=== PATIENT | female | born 1960 ===

== ENCOUNTER 2018-02-13 09:13 | Observation (INO) | payer OTHER ==
--- NOTE | 2018-02-13 10:01 | C.PDOC ---
History Of Present Illness 58 y/o female with history of HTN and high cholesterol presents to ED with c/o left sided chest "pressure" pain since earlier today associated with sob. Patient reports no history of cardiac problems and states she took Aspirin today. Patient denies fever, chills, leg swelling, nausea, vomiting or any other complaints at this time. Time Seen by Provider: 02/13/18 09:27 Chief Complaint (Nursing): Chest Pain History Per: Patient History/Exam Limitations: no limitations Onset/Duration Of Symptoms: Hrs Current Symptoms Are (Timing): Still Present Quality: Tightness Past Medical History Reviewed: Historical Data, Nursing Documentation, Vital Signs Vital Signs: Last Vital Signs Temp Pulse Resp BP Pulse Ox 100 02/13/18 10:06 - Medical History PMH: HTN, Hyperlipidemia Surgical History: No Surg Hx Family History: States: No Known Family Hx - Social History Hx Alcohol Use: No Hx Substance Use: No Review Of Systems Except As Marked, All Systems Reviewed And Found Negative. Cardiovascular: Positive for: Chest Pain Respiratory: Positive for: Shortness of Breath Physical Exam - Physical Exam Appears: Non-toxic, No Acute Distress Skin: Warm, Dry, No Rash Head: Atraumatic, Normacephalic Eye(s): bilateral: Normal Inspection Oral Mucosa: Moist Chest: Symmetrical Cardiovascular: Rhythm Regular Respiratory: Normal Breath Sounds, No Rales, No Rhonchi, No Wheezing Gastrointestinal/Abdominal: Soft, No Tenderness, No Guarding, No Rebound Extremity: No Pedal Edema, Capillary Refill (<2 seconds) Neurological/Psych: Oriented x3, Normal Speech, Normal Cognition ED Course And Treatment - Laboratory Results Result Diagrams: 02/13/18 09:52 02/13/18 09:52 ECG: Interpreted By Me, Viewed By Me ECG Rhythm: Sinus Rhythm Interpretation Of ECG: NSR, Poor R wave progression Rate From EC (BPM) O2 Sat by Pulse Oximetry: 100 (RA) Medical Decision Making Medical Decision Making: Assessment: Chest pain Discussed with Dr. López and will admit to tele observation cardiology consult Dr. Carlos Disposition Discussed With : Nataliia López Doctor Will See Patient In The: Hospital Counseled Patient/Family Regarding: Studies Performed, Diagnosis - Disposition Disposition: HOSPITALIZED Disposition Time: 10:31 Condition: FAIR Forms: [facility] (Bermudian) - Clinical Impression Clinical Impression: Chest pain - Scribe Statement The provider has reviewed the documentation as recorded by the Roloibcordell Lucio All medical record entries made by the Roloibcordell were at my direction and personally dictated by me. I have reviewed the chart and agree that the record accurately reflects my personal performance of the history, physical exam, medical decision making, and the department course for this patient. I have also personally directed, reviewed, and agree with the discharge instructions and disposition.
[2018-02-13 10:03] LABS: BASO # 0.1 K/uL (0.0-0.2); BASO % 0.8 % (0.0-2.0); EOS # 0.1 K/uL (0.0-0.7); EOS % 1.8 % (0.0-4.0); HEMOGLOBIN 13.7 g/dL (11.0-16.0); LYMPH # 1.3 K/uL (1.0-4.3); LYMPH % 18.8 % (20.0-40.0); MEAN CELL VOLUME 90.3 fL (81.0-99.0); MEAN CORPUSCULAR HEMOGLOBIN 30.1 pg (27.0-31.0); MEAN CORPUSCULAR HGB CONC 33.3 g/dL (33.0-37.0); MEAN PLATELET VOLUME 10.7 fL (7.2-11.7); MONO # 0.6 K/uL (0.0-0.8); MONO % 8.6 % (0.0-10.0); NRBC % 0.1 % (0.0-2.0); RBC 4.56 Mil/uL (3.80-5.20); WHITE BLOOD COUNT 7.1 K/uL (4.8-10.8)
[2018-02-13 10:11] LABS: ALB/GLOB RATIO 1.8 (1.0-2.1); ALBUMIN 4.7 g/dL (3.5-5.0); ALT/SGPT 38 U/L (9-52); AST/SGOT 25 U/L (14-36); BLOOD UREA NITROGEN 11 mg/dL (7-17); CALCIUM 9.2 mg/dl (8.6-10.4); GFR NON-AFRICAN AMERICAN > 60
[2018-02-13 10:23] LABS: B-TYPE NATRIURETIC PEPTIDE 87.6 pg/mL (0-900)
--- NOTE | 2018-02-13 11:01 | RAD ---
Date of service: 02/13/2018 PROCEDURE: CHEST RADIOGRAPH, 1 VIEW HISTORY: SOB COMPARISON: None available. FINDINGS: LUNGS: The lungs are well inflated and clear. PLEURA: No pneumothorax or pleural fluid seen. CARDIOVASCULAR: Normal. OSSEOUS STRUCTURES: No significant abnormalities. VISUALIZED UPPER ABDOMEN: Normal. OTHER FINDINGS: None. IMPRESSION: No active pulmonary disease.
--- NOTE | 2018-02-13 13:17 | CP.PCM.CON ---
<Daya Burt - Last Filed: 02/13/18 17:36> History of Present Illness - History of Present Illness History of Present Illness: Cardiology Consult Note- Dr. Carlos's service Reason for consult: chest pain HPI: 58 year old female with past medical history significant for HTN and Hypercholesterolemia presents with complaints of chest pain which started around 5am this morning. Patient states that this is the first time this has ever occurred. She states that she experienced a tightness in her chest. She denies radiation of pain anywhere. She states that she is able to walk about without feeling fatigued. Patient does not note any changes with respirations or position in bed. Per ED note, patient took an aspirin. She admits to palpitations, headache and back pain. She states that the back pain and headache are separate and distinct from the chest tightness. She denies shortness of breath, nausea, vomiting or recent travel at this time. PMHx- as stated above PSHx- C/S x1 FamHx- Mother diagnosed with breast cancer at approx 80 years of age. Denies any other known cardiac disease in the family Medications- Norvasc 5 mg PO daily, Atorvastatin 20 mg PO HS and another medication Social- Denies tobacco, alcohol or illicit drug use. Patient works packing items Allergies- NKDA PMD- [place] [facility] on [address] Review of Systems - Review of Systems Systems not reviewed;Unavailable: Language Barrier - Constitutional Constitutional: absent: Weakness - EENT Eyes: absent: Change in Vision Ears: absent: Decreased Hearing, Ear Discharge - Cardiovascular Cardiovascular: Chest Pain. absent: Dyspnea - Respiratory Respiratory: absent: Cough, Dyspnea - Gastrointestinal Gastrointestinal: absent: Constipation, Diarrhea, Nausea, Vomiting - Musculoskeletal Musculoskeletal: Back Pain, Neck Pain - Integumentary Integumentary: absent: Change in Hair, Dry Skin - Neurological Neurological: absent: Abnormal Hearing, Abnormal Movements, Confusion - Psychiatric Psychiatric: absent: Anxiety Past Patient History - Past Social History Smoking Status: Never Smoked Alcohol: None Drugs: Denies Home Situation {Lives}: With Family - CARDIAC Hx Hypertension: Yes - PSYCHIATRIC Hx Substance Use: No - SURGICAL HISTORY Hx Surgeries: Yes Meds Allergies/Adverse Reactions: Allergies Allergy/AdvReac Type Severity Reaction Status Date / Time No Known Allergies Allergy Unverified 02/13/18 09:19 - Medications Medications: Current Medications Amlodipine Besylate (Norvasc) 5 mg PO DAILY [facility] Aspirin (Ecotrin) 81 mg PO DAILY [facility] Enoxaparin Sodium (Lovenox) 30 mg SC DAILY [facility] Famotidine (Pepcid) 20 mg PO DAILY [facility] Home Med (Azilsartan Medoxomil [Edarbi]) 40 mg PO DAILY [facility] Pneumococcal Polyvalent Vaccine (Pneumovax 23 Vaccine) 0.5 ml IM .ONCE ONE Stop: 02/14/18 10:01 Rosuvastatin Calcium (Crestor) 10 mg PO [facility] Physical Exam - Constitutional Appears: Non-toxic, No Acute Distress - Head Exam Head Exam: ATRAUMATIC, NORMAL INSPECTION, NORMOCEPHALIC - Eye Exam Eye Exam: EOMI, Normal appearance, PERRL Pupil Exam: NORMAL ACCOMODATION - ENT Exam ENT Exam: Mucous Membranes Moist - Neck Exam Neck exam: Positive for: Full Rom - Respiratory Exam Respiratory Exam: NORMAL BREATHING PATTERN - Cardiovascular Exam Cardiovascular Exam: +S1, +S2. absent: Tachycardia, Irregular Rhythm, JVD - GI/Abdominal Exam GI & Abdominal Exam: Normal Bowel Sounds, Soft. absent: Tenderness - Extremities Exam Extremities exam: Positive for: full ROM, normal capillary refill, pedal edema, pedal pulses present. Negative for: tenderness - Back Exam Back exam: FULL ROM - Neurological Exam Neurological exam: Alert, Oriented x3 - Psychiatric Exam Psychiatric exam: Normal Affect, Normal Mood - Skin Skin Exam: Dry, Intact, Warm Results - Vital Signs Recent Vital Signs: Last Vital Signs Temp 97.7 F 02/13/18 11:28 Pulse 62 02/13/18 12:18 Resp 18 02/13/18 11:28 BP 134/75 02/13/18 11:28 Pulse Ox 98 02/13/18 11:28 - Labs Result Diagrams: 02/13/18 09:52 02/13/18 09:52 Labs: Laboratory Results - last 24 hr 02/13/18 02/13/18 09:52 09:52 WBC 7.1 RBC 4.56 Hgb 13.7 Hct 41.2 MCV 90.3 MCH 30.1 MCHC 33.3 RDW 14.0 Plt Count 181 MPV 10.7 Neut % (Auto) 70.0 Lymph % (Auto) 18.8 L Toombs % (Auto) 8.6 Eos % (Auto) 1.8 Baso % (Auto) 0.8 Neut # (Auto) 5.0 Lymph # (Auto) 1.3 Toombs # (Auto) 0.6 Eos # (Auto) 0.1 Baso # (Auto) 0.1 Sodium 142 Potassium 3.9 Chloride 103 Carbon Dioxide 23 Anion Gap 20 BUN 11 Creatinine 0.6 L Est GFR ( Amer) > 60 Est GFR (Non-Af Amer) > 60 Random Glucose 96 Calcium 9.2 Total Bilirubin 0.6 AST 25 ALT 38 Alkaline Phosphatase 55 Troponin I < 0.0120 NT-Pro-B Natriuret Pep 87.6 Total Protein 7.3 Albumin 4.7 Globulin 2.6 Albumin/Globulin Ratio 1.8 Assessment & Plan (1) Chest pain Assessment and Plan: F/U EKG x3. Initial EKG no signs of ST segment elevations or depressions. F/U echo Troponin negative x1 Continue ASA 81 mg F/U AM labs: Lipid Panel, HgbA1c and thyroid studies Will monitor Status: Acute (2) HTN (hypertension) Assessment and Plan: Norvasc 5 mg PO daily On Ed[place] outpatient. Continue Normotensive Status: Chronic (3) Hypercholesteremia Assessment and Plan: F/U lipid panel Crestor 10 mg PO HS Status: Chronic (4) Prophylactic measure Assessment and Plan: Lovenox 30 SC daily Pepcid 20 mg PO daily Status: Acute <Aristeo Carlos - Last Filed: 02/14/18 06:44> Meds - Medications Medications: Current Medications Acetaminophen (Tylenol 325mg Tab) 650 mg PO Q6 PRN PRN Reason: Pain, moderate (4-7) Last Admin: 02/14/18 02:36 Dose: 650 mg Amlodipine Besylate (Norvasc) 5 mg PO DAILY [facility] Aspirin (Ecotrin) 81 mg PO DAILY [facility] Enoxaparin Sodium (Lovenox) 30 mg SC DAILY [facility] Famotidine (Pepcid) 20 mg PO DAILY [facility] Home Med (Patient's Own Medication) 1 tab PO DAILY [facility] Pneumococcal Polyvalent Vaccine (Pneumovax 23 Vaccine) 0.5 ml IM .ONCE ONE Stop: 02/14/18 10:01 Rosuvastatin Calcium (Crestor) 10 mg PO HS [facility] Last Admin: 02/13/18 21:12 Dose: 10 mg Results - Vital Signs Recent Vital Signs: Last Vital Signs Temp 98.1 F 02/14/18 04:10 Pulse 56 L 02/14/18 04:10 Resp 18 02/14/18 04:10 BP 112/70 02/14/18 04:10 Pulse Ox 97 02/14/18 04:10 - Labs Result Diagrams: 02/13/18 09:52 02/13/18 09:52 Labs: Laboratory Results - last 24 hr 02/13/18 02/13/18 02/13/18 09:52 09:52 17:07 WBC 7.1 RBC 4.56 Hgb 13.7 Hct 41.2 MCV 90.3 MCH 30.1 MCHC 33.3 RDW 14.0 Plt Count 181 MPV 10.7 Neut % (Auto) 70.0 Lymph % (Auto) 18.8 L Toombs % (Auto) 8.6 Eos % (Auto) 1.8 Baso % (Auto) 0.8 Neut # (Auto) 5.0 Lymph # (Auto) 1.3 Toombs # (Auto) 0.6 Eos # (Auto) 0.1 Baso # (Auto) 0.1 Sodium 142 Potassium 3.9 Chloride 103 Carbon Dioxide 23 Anion Gap 20 BUN 11 Creatinine 0.6 L Est GFR ( Amer) > 60 Est GFR (Non-Af Amer) > 60 Random Glucose 96 Calcium 9.2 Total Bilirubin 0.6 AST 25 ALT 38 Alkaline Phosphatase 55 Total Creatine Kinase 111 CK-MB (Mass) 0.87 Troponin I < 0.0120 < 0.0120 NT-Pro-B Natriuret Pep 87.6 Total Protein 7.3 Albumin 4.7 Globulin 2.6 Albumin/Globulin Ratio 1.8 02/13/18 21:53 WBC RBC Hgb Hct MCV MCH MCHC RDW Plt Count MPV Neut % (Auto) Lymph % (Auto) Toombs % (Auto) Eos % (Auto) Baso % (Auto) Neut # (Auto) Lymph # (Auto) Toombs # (Auto) Eos # (Auto) Baso # (Auto) Sodium Potassium Chloride Carbon Dioxide Anion Gap BUN Creatinine Est GFR ( Amer) Est GFR (Non-Af Amer) Random Glucose Calcium Total Bilirubin AST ALT Alkaline Phosphatase Total Creatine Kinase 99 CK-MB (Mass) 0.70 Troponin I < 0.0120 NT-Pro-B Natriuret Pep Total Protein Albumin Globulin Albumin/Globulin Ratio Assessment & Plan - Assessment and Plan (Free Text) Assessment: Patient seen and evaluated personally by me Plan of care d/w the medical examiner and as documented Will consider stress test if Trops are negative Check ECHO
[2018-02-13 17:51] LABS: CK-MB 0.87 ng/mL (0.0-3.38)
[2018-02-14 07:15] LABS: BASO # 0.1 K/uL (0.0-0.2); BASO % 1.1 % (0.0-2.0); EOS # 0.2 K/uL (0.0-0.7); EOS % 2.4 % (0.0-4.0); HEMOGLOBIN 13.4 g/dL (11.0-16.0); LYMPH # 1.3 K/uL (1.0-4.3); LYMPH % 20.9 % (20.0-40.0); MEAN CELL VOLUME 90.3 fL (81.0-99.0); MEAN CORPUSCULAR HEMOGLOBIN 30.2 pg (27.0-31.0); MEAN CORPUSCULAR HGB CONC 33.5 g/dL (33.0-37.0); MEAN PLATELET VOLUME 10.9 fL (7.2-11.7); MONO # 0.6 K/uL (0.0-0.8); MONO % 9.2 % (0.0-10.0); NEUT # 4.3 K/uL (1.8-7.0); NEUT % 66.4 % (50.0-75.0); RBC 4.44 Mil/uL (3.80-5.20); WHITE BLOOD COUNT 6.5 K/uL (4.8-10.8)
[2018-02-14 07:22] LABS: LDL CHOLESTEROL 40 mg/dL (0-129)
[2018-02-14 07:31] LABS: ALB/GLOB RATIO 1.6 (1.0-2.1); ALBUMIN 3.8 g/dL (3.5-5.0); ALT/SGPT 30 U/L (9-52); AST/SGOT 13 U/L (14-36); BLOOD UREA NITROGEN 8 mg/dL (7-17); CALCIUM 8.8 mg/dl (8.6-10.4); GFR NON-AFRICAN AMERICAN > 60; HDL CHOLESTEROL 39 mg/dL (30-70)
--- NOTE | 2018-02-14 09:09 | HP ---
date 02/13/18 Copied To: Nataliia López MD Attending MD: Nataliia López MD CHIEF COMPLAINT: Chest pain. HISTORY OF PRESENT ILLNESS: Ms. Karen Kate is a 58-year-old female with history of hypertension and hypercholesteremia, came to the emergency room, complaining of left-sided chest pain like pressure, which is earlier today, associated with shortness of breath. The patient reports no history of cardiac problem. She states that she took aspirin today. The patient denies fever, chills, swelling of the leg, nausea, vomiting, or diarrhea. No headache. No dizziness. Pain is like tightness. PAST MEDICAL HISTORY: Hypertension and hypercholesteremia. FAMILY HISTORY: Father and mother, noncontributory. HABITS: No smoking. No drug. No ethanol. ALLERGIES: THE PATIENT IS NOT ALLERGIC WITH ANY MEDICATIONS. REVIEW OF SYSTEMS: The patient was seen and examined at the bedside in her room, still complaining about chest pressure and sometime shortness of breath. No nausea or vomiting. Do not look like toxic or acute distress. No rash. The patient is atraumatic. PHYSICAL EXAMINATION: VITALS: Temperature 97.7, pulse 67, blood pressure 120/80 , and respiratory rate 20. HEENT: Head is normocephalic and atraumatic. Eyes, PERRLA. Extraocular muscles are intact. Conjunctivae clear. Nose is patent. Mucous membrane moist. NECK: Supple. No carotid bruit. No JVD or thyromegaly. CHEST: Bilaterally symmetrical. HEART: S1 and S2 positive. LUNGS: Clear to auscultation. ABDOMEN: Soft. Bowel sounds. No organomegaly. EXTREMITIES: No edema. No cyanosis. NEUROLOGICAL: The patient is awake and alert. Moving all 4 extremities. No focal deficits. LABORATORY DATA: White blood cells 7.1, hemoglobin 13.7, hematocrit 41.2, and platelets 181. Sodium 142, potassium 3.9, BUN 11, creatinine 0.6, and glucose 96. AST is 25 and ALT is 38. Troponin less than 0.0120 x3. ASSESSMENT AND PLAN: Ms. Karen Kate is a 58-year-old lady with history of hypertension, hypercholesteremia, came with chest pain. Cardiac enzymes x3 done, is negative. Followup EKG x3. Initial EKG, no signs of ST-segment elevation or depression. Followup echo. Continue aspirin. Followup lipid profile, hemoglobin A1c, and thyroid level. The patient is getting Norvasc 5 mg for high blood pressure, on [place] outpatient, continue that. Hypercholesteremia, I order the patient lipid profile. Continue Crestor 10 mg. Gastrointestinal and deep venous thrombosis prophylaxis. Given the patient Lovenox and Pepcid. Cardiology consult called. Chest x-ray reviewed by me. Repeat laboratories. We will follow up. Nataliia López MD MTDJaylyn
[2018-02-14] MEDS: EDARBI 40 MG PO SCH (09:25)
[2018-02-14] MEDS: Enoxaparin 30 mg Syringe SC SCH (09:25)
[2018-02-14] MEDS ORDERED: Pneumococcal 23-Valent Vaccine IM ONE (10:00)
--- NOTE | 2018-02-14 11:19 | CT ---
Date of service: 02/14/2018 PROCEDURE: CT Cervical Spine without contrast HISTORY: c/o numbnes to right side of neck ,right arm disco COMPARISON: None available. TECHNIQUE: Axial computed tomography images were obtained of the cervical spine without the use of intravenous contrast. Coronal and sagittal reformatted images were created and reviewed. Radiation dose: Total exam DLP = 442.6 mGy-cm. This CT exam was performed using one or more of the following dose reduction techniques: Automated exposure control, adjustment of the mA and/or kV according to patient size, and/or use of iterative reconstruction technique. FINDINGS: VERTEBRAE: No fracture. Normal alignment. No destructive bony lesion. DISCS/SPINAL CANAL/NEURAL FORAMINA: No significant central canal or neural foraminal stenosis. Discs heights are grossly preserved. PARASPINAL SOFT TISSUES: Unremarkable. OTHER FINDINGS: None. IMPRESSION: Unremarkable CT of the cervical spine.
--- NOTE | 2018-02-14 19:27 | CP.PCM.PN ---
<Mason Sullivan E - Last Filed: 02/14/18 19:24> Subjective - Date & Time of Evaluation Date of Evaluation: 02/14/18 Time of Evaluation: 10:00 - Subjective Subjective: Cardiology progress note ( Dr. Carlos's service) Patient was seen and examined at bedside. Patient states that she is doing well with no new complaints. Patient is still with intermittent chest pain and musculoskeletal back pain but denies palpitations, SOB, dizziness. Objective - Vital Signs/Intake and Output Vital Signs (last 24 hours): Temp Pulse Resp BP Pulse Ox 97.3 F L 60 20 113/69 97 02/14/18 15:00 02/14/18 15:00 02/14/18 15:00 02/14/18 15:00 02/14/18 15:00 Intake and Output: 02/14/18 02/15/18 18:59 06:59 Intake Total 480 Balance 480 - Medications Medications: Current Medications Acetaminophen (Tylenol 325mg Tab) 650 mg PO Q6 PRN PRN Reason: Pain, moderate (4-7) Last Admin: 02/14/18 02:36 Dose: 650 mg Amlodipine Besylate (Norvasc) 5 mg PO DAILY [facility] Last Admin: 02/14/18 09:24 Dose: 5 mg Aspirin (Ecotrin) 81 mg PO DAILY [facility] Last Admin: 02/14/18 09:24 Dose: 81 mg Enoxaparin Sodium (Lovenox) 30 mg SC DAILY [facility] Last Admin: 02/14/18 09:25 Dose: 30 mg Famotidine (Pepcid) 20 mg PO DAILY [facility] Last Admin: 02/14/18 09:24 Dose: 20 mg Home Med (Patient's Own Medication) 1 tab PO DAILY [facility] Last Admin: 02/14/18 09:25 Dose: 1 tab Rosuvastatin Calcium (Crestor) 10 mg PO HS [facility] Last Admin: 02/13/18 21:12 Dose: 10 mg - Labs Labs: 02/14/18 06:48 02/14/18 06:48 - Constitutional Appears: Well, No Acute Distress - Head Exam Head Exam: ATRAUMATIC, NORMAL INSPECTION - Eye Exam Eye Exam: EOMI, Normal appearance - ENT Exam ENT Exam: Mucous Membranes Moist - Respiratory Exam Respiratory Exam: Clear to Ausculation Bilateral, NORMAL BREATHING PATTERN. absent: Prolonged Expiratory Phase, Rhonchi, Wheezes - Cardiovascular Exam Cardiovascular Exam: REGULAR RHYTHM, +S1, +S2 - GI/Abdominal Exam GI & Abdominal Exam: Soft, Normal Bowel Sounds. absent: Firm, Guarding, Rigid - Extremities Exam Extremities Exam: Normal Inspection. absent: Calf Tenderness, Pedal Edema - Neurological Exam Neurological Exam: Alert, Awake, Oriented x3 Assessment and Plan (1) Chest pain Assessment & Plan: CARMELLA negative X3 without EKG changes HgbA1C: 5.8 Lipid panel: - TGL: 81, Chol: 110, LDL: 40 and HDL: 39 -TSH and Free T4: 1.68 and 0.84, wnl ASA 81mg PO daily Crestor 10mg PO HS Plans for possible stress test Status: Acute (2) HTN (hypertension) Assessment & Plan: Controlled Norvasc 5 mg PO daily Status: Chronic (3) Hypercholesteremia Assessment & Plan: Lipid panel: - TGL: 81, Chol: 110, LDL: 40 and HDL: 39 Crestor 10 mg PO HS Status: Chronic (4) Prophylactic measure Assessment & Plan: DVT: Lovenox 30 SC daily GI: Pepcid 20 mg PO daily All plans and management discussed with Dr. Carlos Status: Acute <Aristeo Carlos - Last Filed: 02/14/18 22:03> Objective - Vital Signs/Intake and Output Vital Signs (last 24 hours): Temp Pulse Resp BP Pulse Ox 97.3 F L 60 20 113/69 97 02/14/18 15:00 02/14/18 16:00 02/14/18 15:00 02/14/18 15:00 02/14/18 15:00 Intake and Output: 02/14/18 02/15/18 18:59 06:59 Intake Total 480 Balance 480 - Medications Medications: Current Medications Acetaminophen (Tylenol 325mg Tab) 650 mg PO Q6 PRN PRN Reason: Pain, moderate (4-7) Last Admin: 02/14/18 02:36 Dose: 650 mg Amlodipine Besylate (Norvasc) 5 mg PO DAILY [facility] Last Admin: 02/14/18 09:24 Dose: 5 mg Aspirin (Ecotrin) 81 mg PO DAILY [facility] Last Admin: 02/14/18 09:24 Dose: 81 mg Enoxaparin Sodium (Lovenox) 30 mg SC DAILY [facility] Last Admin: 08/30/18 09:25 Dose: 30 mg Famotidine (Pepcid) 20 mg PO DAILY [facility] Last Admin: 02/14/18 09:24 Dose: 20 mg Home Med (Patient's Own Medication) 1 tab PO DAILY [facility] Last Admin: 02/14/18 09:25 Dose: 1 tab Rosuvastatin Calcium (Crestor) 10 mg PO [facility] Last Admin: 02/13/18 21:12 Dose: 10 mg - Labs Labs: 02/14/18 06:48 02/14/18 06:48 Assessment and Plan - Assessment and Plan (Free Text) Assessment: Patient seen and evaluated personally by vt Plan of care d/w the electromedical equipment technician as documented
--- NOTE | 2018-02-14 20:06 | CARD ---
APPROVED REPORT Date of service: 02/13/2018 EKG Measurement Heart [id number] <Conclusion> Sinus bradycardia Otherwise normal ECG
--- NOTE | 2018-02-14 20:08 | CARD ---
APPROVED REPORT Date of service: 02/13/2018 EKG Measurement Heart [id number] <Conclusion> Sinus bradycardia Otherwise normal ECG
--- NOTE | 2018-02-14 20:23 | CARD ---
APPROVED REPORT Date of service: 02/13/2018 EKG Measurement Heart [id number] <Conclusion> Normal sinus rhythm Septal infarct, age undetermined Abnormal ECG
[2018-02-15] MEDS: Naproxen 550 mg Tab PO SCH ×2 (00:02→09:09)
--- NOTE | 2018-02-15 04:09 | PN ---
Copied To: Nataliia López MD Attending MD: Nataliia López MD DATE: 02/14/2018 SUBJECTIVE: The patient was seen and examined at the bedside, looking comfortable. Still complaining about neck pain and shoulder pain. Chest pain is better. No fever. No chills. No headache. No dizziness. The pain looks like musculoskeletal and shortness of breath. PHYSICAL EXAMINATION: VITAL SIGNS: Temperature 97.3, pulse 60, respiratory rate 20, blood pressure 113/69, pulse oximetry 97. HEENT: Normocephalic and atraumatic. Eyes PERRLA. Extraocular muscles intact. Conjunctivae are clear. Nose is patent. Mucous membranes are moist. NECK: Supple. No carotid bruits. No JVD or thyromegaly. CHEST: Bilaterally symmetrical. HEART: S1 and S2 positive. LUNGS: Clear to auscultation. ABDOMEN: Soft. Bowel sounds present. No organomegaly. EXTREMITIES: No edema. No cyanosis. NEUROLOGIC: The patient is awake and alert. Moving all four extremities. No focal deficits. MEDICATIONS: Tylenol, Norvasc, Ecotrin, Lovenox, Pepcid, Crestor. LABORATORY DATA: White blood cells 6.5, hemoglobin 13.4, hematocrit 40.2, and platelets 170,000. Sodium 141, potassium 3.9, BUN 8, creatinine 0.6, and glucose 101. ASSESSMENT AND PLAN: The patient is a 58-year-old lady, came with chest pain, rule out myocardial infarction negative x3 without EKG changes, hemoglobin A1c is 5.8. The patient is prediabetic. Cholesterol profile appreciated. with in normal limit. The patient is getting aspirin, Crestor. May be the patient need to go for stress test tomorrow as per Cardiology. Hypertension, getting controlled with Norvasc 5 mg. Hypercholesterolemia, getting Crestor. Getting gastrointestinal and deep venous thrombosis prophylaxis. Neck pain, looks like musculoskeletal. We will give some naproxen and muscle relaxant. Discussion done with the patient's daughter at length of time. Cervical spine CT reviewed by me. Echocardiographic results are pending. We will follow up. Nataliia López MD JOHN
[2018-02-15 08:27] VITALS: BP 119/70; RESP 18; TEMP 98.1; O2SAT 98
[2018-02-15 08:44] VITALS: PULSE 71
[2018-02-15] MEDS: Enoxaparin 30 mg Syringe SC SCH (09:08)
[2018-02-15] MEDS: EDARBI 40 MG PO SCH (09:09)
--- NOTE | 2018-02-15 12:16 | CP.PCM.PN ---
Subjective - Date & Time of Evaluation Date of Evaluation: 02/15/18 Time of Evaluation: 12:15 - Subjective Subjective: PT SEEN BY AND CLEARED FOR D/C HOME TODAY PER DR. PRESLEY. PER SAKINA PT HAS BEEN CLEARED BY [employer]. RX FOR NAPROXEN GIVEN PER DR. PRESLEY'S REQUEST. NO FURTHER ORDERS. -FOLLOW UP WITH DR. PRESLEY IN THE OFFICE WITHIN 5-7 DAYS---CALL THE OFFICE FOR AN APPOINTMENT. -FOLLOW UP WITH DR. GARCIA OR YOU COLLECTOR IN THE OFFICE WITHIN 10-14 DAYS--- CALL THE OFFICE FOR AN APPOINTMENT. -FOLLOW UP WITH DR. VELEZ (NEUROLOGIST) IN THE OFFICE WITHIN 10-14 DAYS---CALL THE OFFICE FOR AN APPOINTMENT. -CONTINUE HOME MEDICATIONS USUAL. -NEW PRESCRIPTION GIVEN TO YOU PER DR. PRESLEY: 1) NAPROXEN---TAKE WITH FOOD EXACTLY PRESCRIBED. -FOR FURTHER QUESTIONS, CONTACT DR. PRESLEY. Objective - Vital Signs/Intake and Output Vital Signs (last 24 hours): Temp Pulse Resp BP Pulse Ox 98.1 F 71 18 119/70 98 02/15/18 07:15 02/15/18 07:40 02/15/18 07:15 02/15/18 07:15 02/15/18 07:15 Intake and Output: 02/15/18 02/15/18 06:59 18:59 Intake Total 500 Balance 500 - Medications Medications: Current Medications Acetaminophen (Tylenol 325mg Tab) 650 mg PO Q6 PRN PRN Reason: Pain, moderate (4-7) Last Admin: 02/14/18 02:36 Dose: 650 mg Amlodipine Besylate (Norvasc) 5 mg PO DAILY [facility] [place] Last Admin: 02/15/18 09:09 Dose: 5 mg Aspirin (Ecotrin) 81 mg PO DAILY [facility] [place] Last Admin: 02/15/18 09:09 Dose: 81 mg Cyclobenzaprine HCl (Flexeril) 10 mg PO TID [facility] [place] Last Admin: 02/15/18 09:09 Dose: 10 mg Enoxaparin Sodium (Lovenox) 30 mg SC DAILY [facility] [place] Last Admin: 02/15/18 09:08 Dose: 30 mg Famotidine (Pepcid) 20 mg PO DAILY [facility] [place] Last Admin: 02/15/18 09:09 Dose: 20 mg Home Med (Patient's Own Medication) 1 tab PO DAILY [facility] [place] Last Admin: 02/15/18 09:09 Dose: 1 tab Naproxen (Anaprox Ds) 550 mg PO BID [facility] [place] Last Admin: 02/15/18 09:09 Dose: 550 mg Rosuvastatin Calcium (Crestor) 10 mg PO [facility] Last Admin: 02/14/18 22:42 Dose: 10 mg - Labs Labs: 02/14/18 06:48 02/14/18 06:48
--- NOTE | 2018-02-15 17:03 | CP.PCM.PN ---
<Daya Burt - Last Filed: 02/15/18 16:54> Subjective - Date & Time of Evaluation Date of Evaluation: 02/15/18 Time of Evaluation: 10:20 - Subjective Subjective: Cardiology progress note- Dr. Carlos's service Patient was seen and examined with granddaughter at bedside. Patient laying comfortably in bed. She admits to some neck pain. She denies chest pain, shortness of breath or palpitations at this time. Objective - Vital Signs/Intake and Output Vital Signs (last 24 hours): Temp Pulse Resp BP Pulse Ox 98.1 F 71 18 119/70 98 02/15/18 07:15 02/15/18 07:40 02/15/18 07:15 02/15/18 07:15 02/15/18 07:15 Intake and Output: 02/15/18 02/15/18 06:59 18:59 Intake Total 500 350 Balance 500 350 - Labs Labs: 02/14/18 06:48 02/14/18 06:48 - Constitutional Appears: Non-toxic, No Acute Distress - Head Exam Head Exam: ATRAUMATIC, NORMAL INSPECTION, NORMOCEPHALIC - Eye Exam Eye Exam: EOMI, Normal appearance, PERRL Pupil Exam: NORMAL ACCOMODATION - ENT Exam ENT Exam: Mucous Membranes Moist - Neck Exam Neck Exam: Full ROM - Respiratory Exam Respiratory Exam: NORMAL BREATHING PATTERN - Cardiovascular Exam Cardiovascular Exam: REGULAR RHYTHM, +S1, +S2. absent: Tachycardia, Clicks, JVD - GI/Abdominal Exam GI & Abdominal Exam: Soft, Normal Bowel Sounds - Extremities Exam Extremities Exam: Full ROM, Normal Capillary Refill - Back Exam Back Exam: Full ROM - Neurological Exam Neurological Exam: Alert, Awake, Oriented x3 - Psychiatric Exam Psychiatric exam: Normal Affect, Normal Mood - Skin Skin Exam: Dry, Normal Color Assessment and Plan (1) Chest pain Status: Acute (2) HTN (hypertension) Status: Chronic (3) Hypercholesteremia Status: Chronic (4) Prophylactic measure Status: Acute - Assessment and Plan (Free Text) Assessment: Chest pain Assessment & Plan: CARMELLA negative X3 without EKG changes HgbA1C: 5.8 Lipid panel: - TGL: 81, Chol: 110, LDL: 40 and HDL: 39 -TSH and Free T4: 1.68 and 0.84, wnl ASA 81mg PO daily Crestor 10mg PO HS F/U echo report Patient may benefit from stress test. Status: Acute HTN (hypertension) Assessment & Plan: Normotensive Norvasc 5 mg PO daily Status: Chronic Hypercholesteremia Assessment & Plan: Lipid panel: - TGL: 81, Chol: 110, LDL: 40 and HDL: 39 Crestor 10 mg PO HS Status: Chronic IGT Assessment & Plan: A1c 5.8 Diet and exercise management .F/U with outpatient doctor for continued management. Status: Chronic Prophylactic measure Assessment & Plan: DVT: Lovenox 30 SC daily GI: Pepcid 20 mg PO daily <Aristeo Carlos - Last Filed: 02/15/18 20:23> Objective - Vital Signs/Intake and Output Vital Signs (last 24 hours): Temp Pulse Resp BP Pulse Ox 98.1 F 71 18 119/70 98 02/15/18 07:15 02/15/18 07:40 02/15/18 07:15 02/15/18 07:15 02/15/18 07:15 Intake and Output: 02/15/18 02/16/18 18:59 06:59 Intake Total 350 Balance 350 - Labs Labs: 02/14/18 06:48 02/14/18 06:48 Assessment and Plan - Assessment and Plan (Free Text) Assessment: Patient seen and evaluated personally by me Plan of care d/w the resident and as documented
== END 2018-02-15 14:13 | disposition home or self-care (01) ==
LOC: C.ER 09:13 → C.9E 10:30 → C.6T 10:47
PROVIDERS: ADMIT Internal Medicine; ATTEND Internal Medicine
DX: R07.89 Other chest pain (principal); E78.5 Hyperlipidemia, unspecified; I10 Essential (primary) hypertension; R73.03 Prediabetes
CPT/HCPCS: 36415; 71045; 72125; 80053; 80061; 83036; 83880; 84439; 84443; 84484; 85025; 93005; 93306; 99285; G0378; J1650